=== PATIENT | male | born 1995 | race African-American/Black ===

== ENCOUNTER 2016-06-03 09:57 | Emergency (ER) | payer MEDICAID, BC ==
[2016-06-03 10:34] VITALS: BP 117/34
[2016-06-03] MEDS ORDERED: KETOROLAC TROMETHAMINE 60 MG/2 ML VIAL IM ONE ×2 (11:08→11:27)
[2016-06-03] MEDS ORDERED: ALBUTEROL SULFATE/IPRATROPIUM 3 ML NEBU IH ONE ×2 (11:09→11:28)
--- NOTE | 2016-06-03 12:11 | ERNOTE ---
Chest Pain/Cardiac HPI Date of Service: 06/03/16 Chief Complaint: Chest Pain Time Seen by Provider: 06/03/16 10:53 Source: patient Exam Limitations: no limitations Immunizations: IMMUNIZATION HX Immunizations Up to Date Yes Allergies/Adverse Reactions: Allergies Sulfa (Sulfonamide Antibiotics) Allergy (Verified 06/03/16 10:34) Home Medications: HOME MEDICATIONS NK [No Home Medication] 06/03/16 [Last Taken Unknown] Pain Score #1 Pain Score: 3 Narrative: patient is a 21 year old male who presents to the ED with complaints of chest pain after striking himself in the chest. Patient states he was at the desk at the [employer] [employer] when I "puffed out my chest and hit it like Tarzan". States this occurred yesterday about 1700. Complains of dyspnea. Date (Duration): 06/02/16 Time (Timing): 17:00 Timing: intermittent Severity/Quality: moderate, dull Location: substernal Chest Pain Radiation: neck Activities at Onset: activity Modifying Factors - Improves: Present: rest, other - states used his home CPAP for asthma last night and that helped with symptoms Modifying Factors - Worsens: Present: coughing, movement Nitro Today/Relief: no nitro taken today Aspirin Treatment Today: no aspirin today Associated Symptoms: Present: cough, shortness of breath. Absent: headache, dizziness, syncope, diaphoresis, fever/chills, palpitations, nausea, vomiting, abdominal pain, weakness Prior Chest Pain/Cardiac Workup: Reports: no prior cardiac workup Review of Systems - Review of Systems Constitutional: Present: See HPI. Absent: fever, chills, diaphoresis, weakness , fatigue EYE: Present: no symptoms reported ENT: Present: no symptoms reported Respiratory: Present: shortness of breath, cough. Absent: orthopnea, wheezing, stridor Cardiology: Present: no symptoms reported, chest pain. Absent: palpitations, syncope, edema, claudication Gastrointestinal/Abdominal: Present: no symptoms reported. Absent: nausea, vomiting, diarrhea, abdominal pain Genitourinary: Present: no symptoms reported Musculoskeletal: Present: no symptoms reported Neurological: Present: no symptoms reported. Absent: headache, dizziness/light- headedness - Patient's Past Medical History Patient History - Medical: No pertinent hx Patient History - Cardiac/Respiratory: Asthma - states has asthma and uses shome CPAP machine Patient History - Cancer: No Hx of Cancer - Social History Smoking Status: Never smoker Have you smoked in the past 12 months: No Physical Exam - Physical Exam General Appearance: Present: wd/wn, no apparent distress, cheerful. Absent: mild distress, moderate distress, severe distress Eye Exam: Normal inspection: bilateral Ears, Nose, Throat: Present: hearing grossly normal. Absent: dry mucous membranes Neck: Present: normal inspection, nontender, full range of motion Respiratory: Present: no respiratory distress, normal breath sounds, no accessory muscle use, lungs clear, chest tenderness. Absent: respiratory distress, accessory muscle use, crackles, rhonchi, stridor, wheezing, pleural rub Cardiovascular/Chest: Present: regular rate, rhythm, no murmur, normal peripheral pulses Peripheral Pulses: N=norm/S=strong/W=weak/B=bound/A=absent: Radial (R): Strong, Radial (L): Strong Gastrointestinal/Abdominal: Present: normal bowel sounds, nontender, nondistended, soft, no organomegaly Back Exam: Present: normal inspection, normal range of motion, no CVA tenderness , no vertebral tenderness Extremity Exam: Present: normal inspection, non-tender, no edema, normal range of motion Neurological Exam: Present: alert, oriented, normal mood/affect, no motor/ sensory deficits Skin Exam: Present: normal color, warm/dry. Absent: diaphoresis, cyanosis, pallor Lymphatic Exam: Present: no adenopathy ED Progress - Vital Signs Patient's Vital Signs:: I have reviewed the patient's vital signs. Vital Signs: Vital Signs 06/03/16 10:30 Temperature 36 C L Pulse Rate 66 Respiratory 14 Rate Blood Pressure 117/34 O2 Sat by Pulse 98 Oximetry - X-Ray X-Ray #1 X-Ray: chest Interpretation: Reviewed by me X-ray Comments: Findings: The lungs demonstrate no focal consolidation or acute abnormality. There is no pleural effusion or pneumothorax. Cardiac silhouette and pulmonary vasculature are normal. The osseous structures are within normal limits for age. IMPRESSION: No acute cardiopulmonary process detected Electronically signed by Vitor Guardado M.D.. - Progress/Reassessment Chief Complaint: Chest Pain Progress:: Repeat exam at discharge Departure - Departure Clinical Impression: Non-cardiac chest pain Disposition: Home Follow Up Needed Condition: Good Instructions: Chest Pain, Pediatric, Shortness of Breath, Pediatric Referrals: Juliocesar Cast MD [Primary Care Provider] -
== END 2016-06-03 12:32 | disposition home or self-care (01) ==
LOC: ER 09:57
DX: R07.89 Other chest pain (principal)

== ENCOUNTER 2016-08-20 16:35 | Emergency (ER) | payer MEDICAID ==
[2016-08-20 17:34] LABS: Hematocrit 51.1 % (42.0-52.0); Hemoglobin 16.8 gm/dL (13.5-18.0); Mean Cell Volume 80.9 fl (78-100); Mean Corpuscular Hemoglobin 26.6 pg (27-31); Mean Corpuscular Hgb Conc 32.9 g/dl (32-36); Mean Platelet Volume 9.8 fl (6.0-9.5); Neutrophil # 5.6 K/mm3 (1.3-6.0); Neutrophil % 63.9 % (42-75.0); Platelet Count 264 K/mm3 (150-450); Red Blood Count 6.32 M/mm3 (4.7-6.0); White Blood Count 8.8 K/mm3 (4.0-10.5)
--- NOTE | 2016-08-20 17:39 | ERNOTE ---
ER Male HPI Date of Service: 08/20/16 Stated Complaint: FROM WALK IN PRIVATE ISSUES Time Seen by Provider: 08/20/16 17:10 Source: patient Exam Limitations: no limitations Immunizations: IMMUNIZATION HX Immunizations Up to Date Yes Allergies/Adverse Reactions: Allergies Sulfa (Sulfonamide Antibiotics) Allergy (Verified 08/20/16 16:45) Home Medications: HOME MEDICATIONS Doxycycline Monohydrate 100 mg PO BID #20 tablet 08/20/16 [Last Taken Unknown] Lurasidone HCl [Latuda] 20 mg PO DAILY 08/20/16 [Last Taken Unknown] - History of Present Illness Narrative: Pt. comes in with mom and c/o testicular pain, increased urination, increased defecation, and frequent masturbation that pt. states has become even more frequent with pain that has been constant since 1430. Mom states that pt. had a hernia sx as a child with no complications. Review of Systems - Review of Systems Constitutional: Present: no symptoms reported. Absent: recent illness, fever, chills, fatigue, malaise EYE: Present: no symptoms reported ENT: Present: no symptoms reported Respiratory: Present: no symptoms reported. Absent: shortness of breath, cough , wheezing Cardiology: Present: no symptoms reported. Absent: chest pain, palpitations, edema Gastrointestinal/Abdominal: Present: other - frequent defecation. Absent: nausea, vomiting, diarrhea Genitourinary: Present: pain - testicular, other - frequent urination Musculoskeletal: Present: no symptoms reported. Absent: back pain, joint pain Skin: Present: no symptoms reported. Absent: rash, change in color Neurological: Present: anxiety, emotional problems. Absent: numbness, tingling All Other Systems: All systems neg except as marked - Patient's Past Medical History Patient History - Medical: No pertinent hx Patient History - Cardiac/Respiratory: No pertinent hx Patient History - Cancer: No Hx of Cancer Patient History - Surgical Procedures: No surgical history - Social History Smoking Status: Never smoker Have you smoked in the past 12 months: No - Immunizations Immunizations Up to Date: Yes Physical Exam - Physical Exam General Appearance: Present: wd/wn, alert, no apparent distress Eye Exam: Normal inspection: bilateral, PERRL: bilateral, EOMI: bilateral Ears, Nose, Throat: Present: normal ENT inspection, normal pharynx Neck: Present: normal inspection, nontender. Absent: lymphadenopathy (R), lymphadenopathy (L) Respiratory: Present: no respiratory distress, normal breath sounds, no accessory muscle use, chest nontender, lungs clear Cardiovascular/Chest: Present: regular rate, rhythm, no murmur, normal peripheral pulses Gastrointestinal/Abdominal: Present: normal bowel sounds, nontender, nondistended, soft, no organomegaly Rectal Exam: Present: nontender, normal rectal tone, normal prostate Male Genitals Exam: Present: inguinal tenderness - B, scrotum tenderness (R), scrotum tenderness (L), testicular tenderness (R), testicular tenderness (L). Absent: high riding prostate, urethral discharge Back Exam: Present: normal inspection, normal range of motion, no CVA tenderness , no vertebral tenderness Extremity Exam: Present: normal inspection, non-tender, normal range of motion, no edema Neurological Exam: Present: alert, oriented, no motor/sensory deficits, other - appears anxious and obscesive. Skin Exam: Present: normal color, warm/dry. Absent: pallor, skin rash ED Progress - Date and Time Seen: Date and Time: 08/20/16 17:[address] Anabel moreno and agrees that pt. may have increased psychiatric control symptoms that are causing this. He recommends follow up with Dr Canchola. - Results and Orders Patient's Lab Results:: I have reviewed the patient's lab results. - Vital Signs Patient's Vital Signs:: I have reviewed the patient's vital signs. Vital Signs: Vital Signs 08/20/16 08/20/16 16:41 17:08 Temperature 37.1 C 37.2 C Pulse Rate 79 79 Respiratory 12 15 Rate Blood Pressure 151/79 151/88 O2 Sat by Pulse 99 100 Oximetry - CT/Ultrasound CT/Ultrasound Narrative: US with epidydimal cyst, L hydrocele and varicocele. - Progress/Reassessment Chief Complaint: Genitourinary Problem Progress:: Unchanged Departure Clinical Impression: Compulsive behavior disorder, Varicocele, Acute epididymitis Hydrocele Qualifiers: Hydrocele type: infected Qualified Code(s): N43.1 - Infected hydrocele - Departure Disposition: Home self-care Condition: Good Instructions: Hydrocele, Adult, Epididymitis Additional Instructions: Please follow up with urology and Dr Canchola this week. Referrals: Nichol Canchola MD [Staff Physician] - Lamont Alva MD [Associate] - Prescriptions: Doxycycline Monohydrate 100 mg PO BID #20 tablet
[2016-08-20 17:41] LABS: Urine Bilirubin Negative (NEGATIVE); Urine Blood Negative /ul (NEGATIVE); Urine Ketone Negative (NEGATIVE); Urine Nitrite Negative (NEGATIVE); Urine Protein Negative (NEGATIVE); Urine Specific Gravity 1.025 SP.GR. (1.005-1.030); Urine Urobilinogen Normal (NORMAL)
[2016-08-20 17:44] LABS: Albumin * 4.1 gm/dl (3.4-5.0); Anion Gap 14.2 mmol/L (6.8-13.8); BUN/Creatinine Ratio 12.6 (9.0-21.6); Bilirubin, Total 0.6 mg/dL (0.0-1.1); Calcium * 9.4 mg/dL (7.9-10.9); Carbon Dioxide 27.6 mmol/L (24-32.6); Potassium 3.8 mmol/L (3.4-4.6); Total Protein 8.1 gm/dL (6.2-8.2)
[2016-08-20 18:03] LABS: Urine Appearance Clear; Urine Bacteria 1+; Urine Color Yellow; Urine RBC None Seen /hpf (0-5); Urine WBC None Seen /hpf (0-5)
[2016-08-20] MEDS ORDERED: AZITHROMYCIN 250 MG TABLET PO ONE (18:15)
--- OUTSIDE RECORDS SUMMARY | 2016-08-20 18:17 | XMS REPORT | Continuity of Care Document ---
:1995 Author Organization [facility] ([facility] [place]) Address [address] [place] [address] Phone [phone] Care Team Providers Name Role Phone Kortney Joyner Primary Care Provider [phone] Source Comments This disclosure is being made pursuant to the Care Everywhere program, applicable federal and state laws, and may not contain all informaitonavailable regarding this patient.[facility] ([facility] [place]) Active Allergies and Adverse Reactions Allergen Noted Date Severity Reactions Comments Sulfadoxine Urticaria (Hives) Current Medications Prescription Sig. Disp. Refills Start Date End Date Status amphetamine-dextroamphe Take 40 mg by mouth Active tamine (ADDERALL XR) 20 Every morning. mg XR capsule Indications: Attention-Deficit Hyperactivity Disorder SERTraline (ZOLOFT) 100 Take 100 mg by mouth Active mg tablet daily. loratadine (CLARITIN) Take 10 mg by mouth Active 10 mg tablet daily. Pseudoephedrine HCl 30 Take 30 mg by mouth. Active mg Cap Docusate Potassium 100 Take by mouth. 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
[2016-08-20] MEDS ORDERED: AZITHROMYCIN 250 MG TABLET ONE (18:19)
[2016-08-21 00:09] VITALS: BP 153/72
== END 2016-08-20 19:15 | disposition home or self-care (01) ==
LOC: ER 16:35
DX: N43.1 Infected hydrocele (principal); N45.1 Epididymitis; I86.1 Scrotal varices; F63.89 Other impulse disorders

== ENCOUNTER 2016-09-04 04:50 | Emergency (ER) | payer MEDICAID ==
[2016-09-04 05:01] VITALS: BP 146/81
[2016-09-04] MEDS ORDERED: IBUPROFEN 600 MG TABLET PO ONE (05:08)
[2016-09-04] MEDS ORDERED: IBUPROFEN 600 MG TABLET ONE (05:11)
[2016-09-04] MEDS ORDERED: GABAPENTIN 100 MG CAPSULE PO ONE (05:14)
--- NOTE | 2016-09-04 05:29 | ERNOTE ---
Medical Problem HPI - Narrative Date of Service: 09/04/16 - General Chief Complaint: General Assessment Source: patient - Immun/Allergies/Home Medications Immunizations: IMMUNIZATION HX Immunizations Up to Date Yes History of Influenza Vaccine No Allergies/Adverse Reactions: Allergies Sulfa (Sulfonamide Antibiotics) Allergy (Verified 09/04/16 05:01) Home Medications: HOME MEDICATIONS Lurasidone HCl [Latuda] 20 mg PO DAILY 08/20/16 [Last Taken Unknown] Gabapentin 300 mg PO TID PRN #30 capsule 09/04/16 [Last Taken Unknown] Ibuprofen [Motrin] 600 mg PO Q6H PRN #40 tab 09/04/16 [Last Taken Unknown] Multivitamin [Multivitamins] 1 each PO DAILY 09/04/16 [Last Taken Unknown] - History of Present History Narrative: 21 year old that has been having bilateral hand burning (all digits) for four hours. Denies any trauma, or neck pain. There were complaints of upper back pain that he took Tylenol for and has resolved the pain. Nothing increases or decreases the pain. Denies any weakness in the upper or lower extremity. Timing: constant Severity: mild Modifying Factors - (Improves): Present: other - nothing Modifying Factors - (Worsens): Present: other - nothing Review of Systems - Review of Systems Constitutional: Present: no symptoms reported EYE: Present: no symptoms reported ENT: Present: no symptoms reported Respiratory: Present: no symptoms reported Cardiology: Present: no symptoms reported Gastrointestinal/Abdominal: Present: no symptoms reported Genitourinary: Present: no symptoms reported Musculoskeletal: Present: no symptoms reported Skin: Present: no symptoms reported Neurological: Present: See HPI Endocrine: Present: no symptoms reported Hematologic/Lymphatic: Present: no symptoms reported - Patient's Past Medical History Patient History - Medical: Depression Patient History - Cardiac/Respiratory: No pertinent hx Patient History - Cancer: No Hx of Cancer Patient History - Surgical Procedures: No surgical history - Social History Living Situations: home Smoking Status: Never smoker Alcohol Use: none Drug Use: none - Immunizations Immunizations Up to Date: Yes History of Influenza Vaccine: No Physical Exam - Physical Exam General Appearance: Present: no apparent distress Eye Exam: Normal inspection: bilateral, PERRL: bilateral Ears, Nose, Throat: Present: normal ENT inspection Neck: Present: normal inspection Respiratory: Present: no respiratory distress Cardiovascular/Chest: Present: regular rate, rhythm Gastrointestinal/Abdominal: Present: nondistended Back Exam: Present: normal inspection Extremity Exam: Present: normal inspection, other - sensation intact, negative Tinels test Neurological Exam: Present: alert, oriented Skin Exam: Present: normal color ED Progress - Vital Signs Vital Signs: Vital Signs 09/04/16 04:58 Temperature 36.8 C Pulse Rate 66 Respiratory 18 Rate Blood Pressure 146/81 O2 Sat by Pulse 100 Oximetry - Progress/Reassessment Chief Complaint: General Assessment Departure - Departure Clinical Impression: Neuropathy Disposition: Home self-care Condition: Fair Instructions: Neuropathic Pain Print Language: Amharic Additional Instructions: Follow up with your physician in 1 week. Referrals: Juliocesar Cast MD [Primary Care Provider] - Prescriptions: Gabapentin 300 mg PO TID PRN #30 capsule PRN Reason: burning Ibuprofen [Motrin] 600 mg PO Q6H PRN #40 tab PRN Reason: Pain
--- OUTSIDE RECORDS SUMMARY | 2016-09-04 05:39 | XMS REPORT | Continuity of Care Document ---
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
== END 2016-09-04 05:25 | disposition home or self-care (01) ==
LOC: ER 04:50
DX: G62.9 Polyneuropathy, unspecified (principal); F41.9 Anxiety disorder, unspecified